=== PATIENT | male | born 1950 | race Caucasian/White ===

== ENCOUNTER 2023-05-11 11:17 | Day surgery (SDC) | payer MEDICARE ==
[~2023-05-11] VITALS: Ht 160 cm; Wt 47.8 kg
[~2023-05-11 11:17] MED LIST: LR 1,000 ML IV SCH; Ondansetron 4 MG/2 ML VIAL IV PRN
[2023-05-11] MEDS ORDERED: SYNTHROID0.075 MG/T PO (11:47)
[2023-05-11] MEDS ORDERED: CARDIZEM LA180 MG PO (11:48)
[2023-05-11] MEDS ORDERED: MULTAQ400 MG PO (11:48)
[2023-05-11 12:08] VITALS: BP 159/96; PULSE 70; TEMP 97.2
[2023-05-11 13:18] VITALS: BP 131/85; PULSE 74; TEMP 97
--- NOTE | 2023-05-11 13:18 | NUR ---
PATIENT AMBULATED TO CHAIR WITH STEADY GAIT, ASSIST OF 2. ALERT AND AWAKE. DENIES PAIN, NAUSEA AND SHORTNESS OF BREATH. BREATHING REGULAR AND UNLABORED ON ROOM AIR. SKIN WARM AND DRY. IV IN PLACE. NURSE HANDOFF COMPLETED IN ROOM. SEE CHART FOR VITAL SIGNS. PATIENT HAD WATER, ARLEY CRACKERS AND A MUFFIN. FOOD AND DRINK TOLERATED WELL. CALL LIGHT IN REACH. SPOUSE PRESENT IN ROOM.
[2023-05-11 13:30] VITALS: BP 128/85; PULSE 64
[2023-05-11 13:45] VITALS: BP 147/82; PULSE 62
--- NOTE | 2023-05-11 13:55 | NUR ---
1340: MET WITH PATIENT AND SPOUSE IN ROOM TO DISCUSS PROCEDURE. 1350:DISCHARGE TEACHING COMPLETED WITH PRINTED EDUCATION AND INSTRUCTIONS SENT HOME WITH PATIENT. PATIENT VERBALIZED UNDERSTANDING OF TEACHING. 1352: IV REMOVED. GAUZE AND COBAN PLACED OVER SITE. 1355: PATIENT DISCHARGED HOME WITH [facility].
== END 2023-05-11 13:55 | disposition home or self-care (01) ==
LOC: SDCO 11:17
DX: R19.7 Diarrhea, unspecified (principal); K57.30 Diverticulosis of large intestine without perforation or abscess without bleeding; K64.0 First degree hemorrhoids; R14.3 Flatulence; R14.0 Abdominal distension (gaseous); Z80.0 Family history of malignant neoplasm of digestive organs; Z86.010 Personal history of colon polyps
CPT/HCPCS: J2704; J7120